=== PATIENT | male | born 2005 | race Caucasian/White ===

== ENCOUNTER 2023-08-13 08:48 | Outpatient (CLI) | payer MEDICAID | END 2023-08-13 23:59 | disposition home or self-care (01) | LOC: MRI 08:48 | PROVIDERS: ATTEND Pediatrics Sports Medicine | DX: M54.41 Lumbago with sciatica, right side (principal); M53.3 Sacrococcygeal disorders, not elsewhere classified; M25.551 Pain in right hip | CPT/HCPCS: 72148 ==